=== PATIENT | male | born 1995 | race Caucasian/White ===

== ENCOUNTER → 2024-07-06 13:43 | Outpatient (CLI) | payer OTHER, SELFPAY ==
--- NOTE | 2024-07-06 13:45 | DI.MRI.S_ITS ---
PROCEDURE: MR WRIST LT WO CON INDICATIONS: NONDISPLACED FX OF BASE OF 4TH METACARPAL BONE TECHNIQUE: Noncontrast coronal proton density fast spin echo and T2 fast spin echo with fat saturation; coronal 3-D gradient echo, axial T1 spin echo and T2 fast spin echo with fat saturation, sagittal T1 spin echo through the wrist. COMPARISON: [facility] Outside Film, CT, CT WRIST LEFT WITHOUT CONTRAST, 05/04/2024, 12:31. [facility] [place], CR, XR HAND 3+ VIEWS LEFT, 06/04/2024, 9:22. FINDINGS: Image quality: Excellent. Bones and cartilage: There is mild marrow edema involving 4th metatarsal base with cortical irregularity and mild periosteal reaction suggestive of interval healing at patient's known nondisplaced 4th metatarsal base fracture site. No evidence for avascular necrosis. Overlying cartilage surfaces appear normal. Carpal ligaments: The scapholunate ligament is mildly thickened with intrasubstance T2 hyperintense signal suggestive of sprain/low-grade intrasubstance partial-thickness tear. No full-thickness ligament rupture. The lunotriquetral ligament is intact. In the absence of intra-articular contrast, the extrinsic carpal ligaments are not well identified. On sagittal images, the pisohamate ligament appears intact. Triangular fibrocartilage complex: There is T2 hyperintense signal involving triangular fibrocartilage near its ulnar insertion concerning for subtle TFC perforation. The adjacent meniscal homolog appears normal in the absence of intra-articular contrast. The extensor carpi ulnaris tendon is thickened at the level of ulnar styloid. Tendons and soft tissues: The carpal tunnel structures appear normal, including the median nerve. The ulnar nerve appears normal within Guyon's canal. All six extensor tendon compartments demonstrate normal morphology, without pathologic tendon sheath fluid. No soft tissue ganglion cysts. IMPRESSION: 1. Suggestion of interval healing at patient's known nondisplaced 4th metatarsal base fracture site. No new fracture or dislocation. No evidence of avascular necrosis. 2. Subtle strain involving scapholunate ligament. No full-thickness ligament rupture. The lunotriquetral ligament is intact. 3. Suggestion of subtle triangular fibrocartilage tear near its ulnar insertion. 4. Mild tendinosis involving extensor carpi ulnaris tendon at the level of ulnar styloid. Dictated by: Enrico Stanley M.D. on 07/06/2024 at 17:12 Approved by: Enrico Stanley M.D. on 07/06/2024 at 17:22
== END ==
PROVIDERS: Referring Provider Physician Assistant Surgical; Visit Provider Physician Assistant Surgical
DX: S62.345D Nondisplaced fracture of base of fourth metacarpal bone, left hand, subsequent encounter for fracture with routine healing (principal); M25.532 Pain in left wrist; X58.XXXD Exposure to other specified factors, subsequent encounter
CPT/HCPCS: 73221

== ENCOUNTER 2024-10-01 09:16 | Day surgery (SDC) | payer OTHER, SELFPAY ==
--- NOTE | 2024-10-01 09:38 | P.HP_ITS ---
History of Present Illness History of Present Illness Date Patient Seen: 10/01/24 Time Patient Seen: 09:38 Chief complaint: SDC Narrative: 29-year-old here for colonoscopy. I reviewed the recent office note by Elliott Amaro. No significant changes. [facility] Social History Smoking Status: Never smoker alcohol intake: current Meds Home Medications and Allergies Home Medications Medication Instructions Recorded Confirmed Type fluticasone propionate 50 1 spray intranasal DAILY PRN 10/01/24 10/01/24 History mcg/actuation nasal Allergy Symptoms spray,suspension loratadine 10 mg tablet (Claritin) 10 mg PO DAILY PRN Allergy Symptoms 10/01/24 10/01/24 History Allergies Allergy/AdvReac Type Severity Reaction Status Date / Time No Known Drug Allergies Allergy Verified 10/01/24 09:29 Review of Systems Review of Systems ROS: Yes All systems reviewed with the patient and are negative except as otherwise documented Exam Const General: cooperative HENMT Head: normal to inspection Eyes General: appearance normal, both eyes and all related structures Neck Neck: normal visual inspection Chest Chest: normal inspection of the chest Resp Effort & Inspection: normal respiratory effort Cardio Rate: regular rate GI Inspection: normal to inspection Skin General: no rashes or lesions noted Neuro General: patient alert and patient awake Extrem General: normal to inspection and no pedal edema Psych Appearance: grossly normal Assessment & Plan Assessment & Plan narrative: 29-year-old male with 4 years of severe constipation refractory to advanced pharmaceutical therapy. Diagnostic colonoscopy is pursued today. Time-Based Coding :: [TOTAL MINUTES] spent with patient and on the chart (including review of chart, obtaining history, exam, reviewing outside data, placing orders, documenting exam and treatment plan, and counseling patient) on [DATE].
--- NOTE | 2024-10-01 09:40 | PM.PREOP ---
Pre-operative Note Interval Note History & Physical reviewed/Exam performed by Physician: Yes Changes to H&P: No ASA Class (for procedural sedation): I
[2024-10-01 09:42] VITALS: BP 107/70; PULSE 83; RESP 18; TEMP 36.5; O2SAT 98
--- NOTE | 2024-10-01 10:31 | PM.OP.COLON ---
Operative Date/Time/Diagnoses Date of procedure: 10/01/24 Time of procedure: 10:31 Pre-op diagnosis: Severe constipation Post-op diagnosis: same Procedure & Clinicians Study performed: Colonoscopy Same procedure as scheduled: Yes Indications: Severe constipation Surgeon: Benedict Guallpa Procedure Notes SCOAP/Timeout: Done Procedure in detail: After the risks and benefits were explained, written and verbal informed consent was obtained. The patient was brought into the procedure room and placed into the left lateral decubitus position. Please see anesthesia notes for sedation details. Digital rectal examination was accomplished. The scope was introduced into the patient and advanced under direct visualization to the cecum as identified by the appendiceal orifice and ileocecal valve. The scope was slowly withdrawn to carefully examine the mucosa for any defects or lesions. Comprehensive imaging was accomplished throughout the rectum including the dentate line. The colon was decompressed, the scope was then removed from the patient who tolerated the procedure well. Adult colonoscope Bowel prep adequate Scope withdrawal time: 8 minutes Sedation minutes: 20 Specimen(s): none sent Complications: none Impression: The patient had a fairly lengthy redundant colon but no strictures and no mass lesions identified throughout. There was no sign of proctitis. No evidence of inflammatory bowel disease throughout. The terminal ileum was interrogated and appeared visually normal. Prior to sedation digital rectal examination revealed no palpable mass lesions. The anal sphincter mechanism was subjectively tense. The patient however was able to appropriately squeeze the examining finger on command. Additionally he had seemingly normal relaxation of the anal sphincter mechanism with simulated defecation. Endoscopic diagnosis 1. Tense anal sphincter resting pressure 2. Normal anal sphincter relaxation with simulated defecation 3. Somewhat redundant colon 4. Otherwise visually normal exam Post-procedure Plan for aftercare: 1. Follow-up short-term in GI clinic with Elliott Amaro. 2. Consider alternative anti constipation agent such as Trulance. Disposition: PACU
[2024-10-01 10:40] VITALS: BP 97/55; PULSE 107; RESP 16; TEMP 36.2; O2SAT 96
[2024-10-01 10:49] VITALS: BP 97/68; PULSE 119; RESP 17; O2SAT 97
[2024-10-01 10:54] VITALS: BP 117/79; PULSE 98; RESP 9; TEMP 36.8; O2SAT 98
[2024-10-01 11:00] VITALS: BP 104/76; PULSE 12; RESP 98; TEMP 36.8; O2SAT 98
== END 2024-10-01 11:16 | disposition home or self-care (01) ==
PROVIDERS: Referring Provider Internal Medicine Gastroenterology; Visit Provider Internal Medicine Gastroenterology
PROC: 0DJD8ZZ Inspection of Lower Intestinal Tract, Via Natural or Artificial Opening Endoscopic (ICD-10-PCS; CPT 45378; principal; 2024-10-01 10:30)
DX: K59.00 Constipation, unspecified (principal)
CPT/HCPCS: 45378; J2405; J2704